=== PATIENT | female | born 1995 | race African-American/Black ===

== ENCOUNTER 2016-10-15 09:51 | Emergency (ER) | payer OTHER ==
[~2016-10-15] VITALS: Ht 167.6 cm; Wt 77.1 kg
[~2016-10-15 09:51] MED LIST: A.E.R PADS1 JAR TOP; APAP500 PO; BACTRIM DS TAB1 EACH PO; COLACE 100 MG100 MG PO; COLACE100 MG PO; DERMOPLAST SPRA56 ML; HYDROCORTISONE30 G9 RECTAL; IBUPROFEN 800800 M1 PO; IROSPAN 24/6 T1 EACH PO; LANOLIN56 GM; MACROBID 100 M100 M1 PO; NAPROSYN500 MG PO; NOHOMEMEDICATIONS; NORCO 5-325 TA1 EACH PO; NORFLEX100 MG PO; PHENAZOPYRIDIN200 M2 PO; PHENERGAN 25 MG25 M1 PO; PHENERGAN50 MG RC; PROTONIX40 M1 PO; SENNA PO; SENOKOT-S1 TA1 PO; TRINATE TABLET1 TAB PO; ZOFRAN ODT4 MG PO
[2016-10-15 10:16] LABS: URINE BILIRUBIN NEGATIVE (Negative); URINE BLOOD 1+ (Negative); URINE COLOR YELLOW; URINE GLUCOSE-RANDOM* NEGATIVE (Negative); URINE KETONES NEGATIVE (Negative); URINE NITRITE POSITIVE (Negative); URINE PROTEIN (DIPSTICK) TRACE (Negative); URINE UROBILINOGEN 0.2 E.U./dl (0.2-1.0)
[2016-10-15 10:21] LABS: ABSOLUTE NEUTROPHILS 9.7 thou/uL (1.4-8.2); BASOPHILS 0.2 % (0.0-2.0); EOSINOPHILS 3.9 % (0.0-3.0); HEMATOCRIT 42.4 % (37.0-47.0); LYMPHOCYTES 14.8 % (24.0-44.0); MCH 25.5 pg (26.0-34.0); MCHC 32.9 g/dL (28.0-37.0); MCV 77.6 fL (80.0-100.0); MONOCYTES 9.8 % (1.0-8.0); PLATELET COUNT 396 thou/uL (150-400); POLYS 71.3 % (36.0-66.0); RBC 5.46 mil/uL (4.20-5.00); RDW 15.6 % (10.5-14.5); WBC 13.6 thou/uL (4.0-11.0)
[2016-10-15 10:22] LABS: MANUAL DIFF NO
[2016-10-15 10:25] LABS: CALCIUM 9.6 mg/dL (8.5-10.1); CREATININE 0.7 mg/dL (0.6-1.3); POTASSIUM 3.8 mmol/L (3.5-5.1)
[2016-10-15 10:29] LABS: ALBUMIN 3.9 g/dL (3.4-5.0); TOTAL BILIRUBIN 0.5 mg/dL (<0.1-1.0); TOTAL PROTEIN 8.3 g/dL (6.4-8.2)
[2016-10-15 11:03] LABS: BACTERIA >30 Many /HPF (None Seen); SQUAMOUS 4-10 Moderate /LPF (0-3); URINE RBC 3-10 Few /HPF (0-2); URINE WBC 6-15 Few /HPF (0-5)
[2016-10-15 11:04] LABS: CASTS None Seen /LPF (None Seen); CRYSTALS None Seen /LPF (None Seen)
[2016-10-15] MEDS ORDERED: VENTOLIN HFA 1818 GM INH (11:18)
[2016-10-15] MEDS ORDERED: PREDNISONE 20 M20 MG PO (11:18)
[2016-10-15] MEDS ORDERED: KEFLEX500 MG PO (11:18)
[2016-10-15] MEDS ORDERED: TESSALON PERLE100 MG PO (11:25)
== END 2016-10-15 11:50 | disposition home or self-care (01) ==
LOC: ER 09:51
PROVIDERS: Physician Assistant
DX: J40 Bronchitis, not specified as acute or chronic (principal); N39.0 Urinary tract infection, site not specified; Z90.89 Acquired absence of other organs

== ENCOUNTER 2017-02-21 19:42 | Emergency (ER) | payer OTHER ==
[~2017-02-21] VITALS: Ht 167.6 cm; Wt 71.7 kg
[~2017-02-21 19:42] MED LIST changes: +KEFLEX500 MG PO; +PREDNISONE 20 M20 MG PO; +TESSALON PERLE100 MG PO; +VENTOLIN HFA 1818 GM INH
[2017-02-21 20:56] LABS: ABSOLUTE NEUTROPHILS 7.7 thou/uL (1.4-8.2); BASOPHILS 0.6 % (0.0-2.0); EOSINOPHILS 3.8 % (0.0-3.0); HEMATOCRIT 35.9 % (37.0-47.0); LYMPHOCYTES 30.7 % (24.0-44.0); MANUAL DIFF NO; MCH 25.7 pg (26.0-34.0); MCHC 33.5 g/dL (28.0-37.0); MCV 76.7 fL (80.0-100.0); MONOCYTES 5.6 % (1.0-8.0); PLATELET COUNT 353 thou/uL (150-400); POLYS 59.3 % (36.0-66.0); RBC 4.68 mil/uL (4.20-5.00); RDW 14.9 % (10.5-14.5); WBC 12.9 thou/uL (4.0-11.0)
[2017-02-21 20:56] LABS: URINE BLOOD NEGATIVE (Negative); URINE COLOR YELLOW; URINE GLUCOSE-RANDOM* NEGATIVE (Negative); URINE KETONES TRACE (Negative); URINE LEUKOCYTES-REFLEX NEGATIVE (Negative); URINE PROTEIN (DIPSTICK) TRACE (Negative)
[2017-02-21 20:58] LABS: URINE BILIRUBIN NEGATIVE (Negative)
[2017-02-21 20:59] LABS: CALCIUM 9.3 mg/dL (8.5-10.1); CREATININE 0.9 mg/dL (0.6-1.0); POTASSIUM 3.6 mmol/L (3.5-5.1)
[2017-02-21 21:05] LABS: TOTAL BILIRUBIN 0.3 mg/dL (<0.1-1.0); TOTAL PROTEIN 7.5 g/dL (6.4-8.2)
[2017-02-21] MEDS ORDERED: NAPROSYN500 MG PO (22:40)
[2017-02-23 18:10] LABS: CHLAMYDIA TRACHOMATIS-PCR Negative (Negative); NEISSERIA GONORRHEA-PCR Negative (Negative)
== END 2017-02-21 22:47 | disposition home or self-care (01) ==
LOC: ER 19:42
PROVIDERS: Physician Assistant
DX: R10.2 Pelvic and perineal pain (principal); E86.9 Volume depletion, unspecified; F10.99 Alcohol use, unspecified with unspecified alcohol-induced disorder; F12.10 Cannabis abuse, uncomplicated; Z90.89 Acquired absence of other organs; Z88.8 Allergy status to other drugs, medicaments and biological substances

== ENCOUNTER 2018-04-23 10:06 | Emergency (ER) | payer OTHER ==
[~2018-04-23] VITALS: Ht 167.6 cm; Wt 72.6 kg
[2018-04-23 10:37] LABS: URINE BILIRUBIN NEGATIVE (Negative); URINE BLOOD 3+ (Negative); URINE GLUCOSE-RANDOM* NEGATIVE (Negative); URINE KETONES TRACE (Negative); URINE PROTEIN (DIPSTICK) 3+ (Negative); URINE SPECIFIC GRAVITY >= 1.030 (1.005-1.035)
[2018-04-23 10:39] LABS: URINE LEUKOCYTES-REFLEX TRACE (Negative); URINE NITRITE-REFLEX POSITIVE (Negative)
[2018-04-23 10:44] LABS: URINE COLOR RED
[2018-04-23 10:45] LABS: URINE CLARITY CLOUDY
[2018-04-23 10:54] LABS: CASTS None Seen /LPF (None Seen); CRYSTALS None Seen /LPF (None Seen); SQUAMOUS 0-3 Few /LPF (0-3); URINE RBC >20 Many /HPF (0-2); URINE WBC-REFLEX 6-15 Few /HPF (0-5)
[2018-04-23 11:51] LABS: HEMATOCRIT 35.3 % (37.0-47.0); HEMOGLOBIN 11.7 gm/dL (12.0-15.0); MCHC 33.2 g/dL (28.0-37.0); MCV 78.2 fL (80.0-100.0); RBC 4.51 mil/uL (4.20-5.00); WBC 12.6 thou/uL (4.0-11.0)
[2018-04-23] MEDS ORDERED: IBUPROFEN 600600 M1 PO (13:01)
== END 2018-04-23 13:30 | disposition home or self-care (01) ==
LOC: ER 10:06
PROVIDERS: Physician Assistant; Student in an Organized Health Care Education/Training Program
DX: O03.9 Complete or unspecified spontaneous abortion without complication (principal); Z91.048 Other nonmedicinal substance allergy status; Z90.89 Acquired absence of other organs

== ENCOUNTER 2018-10-10 02:10 | Emergency (ER) | payer OTHER ==
[~2018-10-10] VITALS: Ht 165.1 cm; Wt 61.2 kg
[~2018-10-10 02:10] MED LIST changes: +IBUPROFEN 600600 M1 PO
[2018-10-10 03:13] LABS: URINE BILIRUBIN NEGATIVE (Negative); URINE BLOOD TRACE (Negative); URINE CLARITY CLEAR; URINE COLOR YELLOW; URINE GLUCOSE-RANDOM* NEGATIVE (Negative); URINE KETONES NEGATIVE (Negative); URINE LEUKOCYTES-REFLEX TRACE (Negative); URINE NITRITE-REFLEX NEGATIVE (Negative); URINE PROTEIN (DIPSTICK) NEGATIVE (Negative); URINE SPECIFIC GRAVITY >= 1.030 (1.005-1.035); URINE UROBILINOGEN 0.2 E.U./dl (0.2-1.0)
[2018-10-10] MEDS ORDERED: ZOFRAN4 MG PO (03:36)
[2018-10-10 04:12] VITALS: BP 120/66
== END 2018-10-10 04:12 | disposition home or self-care (01) ==
LOC: ER 02:10
PROVIDERS: Student in an Organized Health Care Education/Training Program
DX: R11.2 Nausea with vomiting, unspecified (principal); Z88.8 Allergy status to other drugs, medicaments and biological substances; Z98.890 Other specified postprocedural states

== ENCOUNTER 2018-11-14 22:03 | Emergency (ER) | payer OTHER ==
[~2018-11-14] VITALS: Ht 167.6 cm; Wt 65.8 kg
[~2018-11-14 22:03] MED LIST changes: +ZOFRAN4 MG PO
[2018-11-14] MEDS ORDERED: NAPROSYN500 MG PO (23:15)
[2018-11-14] MEDS ORDERED: BACTRIM DS TAB1 EACH PO (23:15)
[2018-11-14 23:21] VITALS: BP 118/73
== END 2018-11-14 23:22 | disposition home or self-care (01) ==
LOC: ER 22:03
DX: S80.862A Insect bite (nonvenomous), left lower leg, initial encounter (principal); L08.89 Other specified local infections of the skin and subcutaneous tissue; Z88.8 Allergy status to other drugs, medicaments and biological substances; Z90.89 Acquired absence of other organs; Z90.49 Acquired absence of other specified parts of digestive tract; W57.XXXA Bitten or stung by nonvenomous insect and other nonvenomous arthropods, initial encounter; Y92.89 Other specified places as the place of occurrence of the external cause; Y93.89 Activity, other specified; Y99.8 Other external cause status

== ENCOUNTER 2019-04-17 18:37 | Emergency (ER) | payer OTHER ==
[~2019-04-17] VITALS: Ht 165.1 cm; Wt 68.0 kg
[2019-04-17 18:56] LABS: URINE BLOOD NEGATIVE (Negative); URINE CLARITY CLEAR; URINE COLOR YELLOW; URINE GLUCOSE-RANDOM* NEGATIVE (Negative); URINE KETONES 3+ (Negative); URINE LEUKOCYTES NEGATIVE (Negative); URINE NITRITE NEGATIVE (Negative); URINE PROTEIN (DIPSTICK) TRACE (Negative); URINE SPECIFIC GRAVITY 1.025 (1.005-1.035)
[2019-04-17 18:57] LABS: ICTOTEST (BILI CONFIRMATORY) Negative (Negative); URINE BILIRUBIN NEGATIVE (Negative)
[2019-04-17 19:06] LABS: ABSOLUTE NEUTROPHILS 10.5 thou/uL (1.4-8.2); BASOPHILS 0.6 % (0.0-2.0); EOSINOPHILS 1.1 % (0.0-3.0); LYMPHOCYTES 14.2 % (24.0-44.0); MCH 25.6 pg (26.0-34.0); MCHC 32.4 g/dL (28.0-37.0); MCV 78.9 fL (80.0-100.0); MONOCYTES 6.3 % (1.0-8.0); PLATELET COUNT 410 thou/uL (150-400); POLYS 77.8 % (36.0-66.0); RBC 5.06 mil/uL (4.20-5.00); RDW 16.6 % (10.5-14.5); WBC 13.6 thou/uL (4.0-11.0)
[2019-04-17 19:17] LABS: CALCIUM 10.1 mg/dL (8.5-10.1); CREATININE 0.7 mg/dL (0.6-1.0); POTASSIUM 3.7 mmol/L (3.5-5.1)
[2019-04-17 19:22] LABS: ALBUMIN 4.4 g/dL (3.4-5.0); TOTAL BILIRUBIN 0.6 mg/dL (<0.1-1.0); TOTAL PROTEIN 8.4 g/dL (6.4-8.2)
[2019-04-17] MEDS ORDERED: PHENERGAN 25 MG25 M1 PO (21:52)
[2019-04-17 22:13] VITALS: BP 107/55
== END 2019-04-17 22:13 | disposition home or self-care (01) ==
LOC: ER 18:37
PROVIDERS: Emergency Medicine
DX: O21.0 Mild hyperemesis gravidarum (principal); R10.84 Generalized abdominal pain; Z3A.01 Less than 8 weeks gestation of pregnancy

== ENCOUNTER 2019-07-05 15:34 | Emergency (ER) | payer OTHER ==
[~2019-07-05] VITALS: Ht 167.6 cm; Wt 61.2 kg
[2019-07-05 16:26] LABS: URINE BILIRUBIN NEGATIVE (Negative); URINE BLOOD NEGATIVE (Negative); URINE CLARITY CLEAR; URINE COLOR YELLOW; URINE GLUCOSE-RANDOM* NEGATIVE (Negative); URINE KETONES NEGATIVE (Negative); URINE LEUKOCYTES-REFLEX NEGATIVE (Negative); URINE NITRITE-REFLEX NEGATIVE (Negative); URINE PROTEIN (DIPSTICK) NEGATIVE (Negative); URINE SPECIFIC GRAVITY 1.025 (1.005-1.035); URINE UROBILINOGEN 0.2 E.U./dl (0.2-1.0)
[2019-07-05 16:36] LABS: ABSOLUTE NEUTROPHILS 12.5 thou/uL (1.4-8.2); BASOPHILS 0.7 % (0.0-2.0); EOSINOPHILS 1.9 % (0.0-3.0); HEMATOCRIT 38.6 % (37.0-47.0); HEMOGLOBIN 12.6 gm/dL (12.0-15.0); LYMPHOCYTES 17.5 % (24.0-44.0); MCH 26.2 pg (26.0-34.0); MCHC 32.7 g/dL (28.0-37.0); MCV 80.2 fL (80.0-100.0); PLATELET COUNT 392 thou/uL (150-400); POLYS 74.9 % (36.0-66.0); RBC 4.81 mil/uL (4.20-5.00); RDW 14.5 % (10.5-14.5); WBC 16.7 thou/uL (4.0-11.0)
[2019-07-05 16:43] LABS: CALCIUM 10.2 mg/dL (8.5-10.1); CREATININE 0.6 mg/dL (0.6-1.0); POTASSIUM 3.6 mmol/L (3.5-5.1)
[2019-07-05 16:50] LABS: ALBUMIN 3.5 g/dL (3.4-5.0); TOTAL BILIRUBIN 0.2 mg/dL (<0.1-1.0); TOTAL PROTEIN 8.1 g/dL (6.4-8.2)
[2019-07-05] MEDS ORDERED: ONDANSETRON HCL4 M2 PO (17:34)
[2019-07-05 17:50] VITALS: BP 116/84
== END 2019-07-05 17:51 | disposition home or self-care (01) ==
LOC: ER 15:34
PROVIDERS: Physician Assistant
DX: O21.9 Vomiting of pregnancy, unspecified (principal); Z3A.16 16 weeks gestation of pregnancy; Z90.89 Acquired absence of other organs